=== PATIENT | female | born 1955 | race African-American/Black ===

== ENCOUNTER 2016-07-07 10:08 | Emergency (ER) | payer OTHER ==
[2016-07-07] MEDS ORDERED: Oxymetazoline HCl 0.05% ( 15 ML ) ONE (12:42)
[2016-07-07] MEDS ORDERED: Clindamycin 150 MG CAP ONE (13:35)
[2016-07-07 14:05] LABS: #Basophils 0.1 thou/uL (0.0-0.2); #Eosinphils 0.2 thou/uL (0.0-0.7); #Monocytes 0.7 thou/uL (0.11-0.59); #Neutrophils 5.5 thou/uL (1.40-6.50); %Basophils 0.6 % (0.0-1.0); %Eosinophils 2.8 % (0.0-10.0); %Lymphocytes 25.4 % (21.0-51.0); %Neutrophils 63.2 % (42.0-75.0); Hemoglobin 10.5 g/dL (12.0-16.0); Mean Corpuscular HGB CONC 29.8 g/dL (32.0-36.0); Mean Corpuscular Hemoglobin 25.4 pg (27.0-31.0); Mean Corpuscular Volume 85.3 fl (81.0-99.0); Mean Platelet Volume 7.6 fL (7.4-10.4); Platelet Count 277 thou/uL (130-400); RBC Distribution Width 15.5 % (11.5-14.5); Red Blood Cell (RBC) Count 4.13 mill/uL (4.20-5.40); White Blood Cell (WBC) Count 8.6 thou/uL (4.8-10.8)
[2016-07-07 14:06] LABS: MDiff Complete? YES; Manual Diff?? NO
== END 2016-07-07 14:30 | disposition home or self-care (01) ==
LOC: MADERS 10:08
DX: R04.0 Epistaxis (principal); E10.9 Type 1 diabetes mellitus without complications; I10 Essential (primary) hypertension; J45.909 Unspecified asthma, uncomplicated; E03.9 Hypothyroidism, unspecified; Z79.4 Long term (current) use of insulin; Z79.84 Long term (current) use of oral hypoglycemic drugs
CPT/HCPCS: 30903; 36415; 85025

== ENCOUNTER 2017-03-12 12:33 | Emergency (ER) | payer OTHER ==
[2017-03-12 13:44] LABS: #Eosinphils 0.1 thou/uL (0.0-0.7); #Lymphocytes 1.6 thou/uL (1.20-3.40); #Monocytes 0.6 thou/uL (0.11-0.59); %Basophils 0.7 % (0.0-1.0); %Eosinophils 1.8 % (0.0-10.0); %Lymphocytes 24.9 % (21.0-51.0); %Monocytes 8.8 % (0.0-10.0); %Neutrophils 63.7 % (42.0-75.0); Hemoglobin 11.6 g/dL (12.0-16.0); Mean Corpuscular HGB CONC 30.5 g/dL (32.0-36.0); Mean Corpuscular Hemoglobin 25.6 pg (27.0-31.0); Mean Corpuscular Volume 83.9 fl (81.0-99.0); Mean Platelet Volume 7.5 fL (7.4-10.4); Platelet Count 285 thou/uL (130-400); RBC Distribution Width 15.8 % (11.5-14.5); Red Blood Cell (RBC) Count 4.54 mill/uL (4.20-5.40); White Blood Cell (WBC) Count 6.3 thou/uL (4.8-10.8)
[2017-03-12 13:49] LABS: Bilirubin Negative (Negative); Blood, Urine Large (Negative); Clarity Cloudy (Clear); Glucose, Urine (Dipstick) Negative (Negative); Leukocyte Moderate (Negative); Nitrite Positive (Negative); Protein, Urine (Dipstick) 100 mg/dL (Neg-Trace)
[2017-03-12 13:56] LABS: RBC/HPF GREATER THAN 50-TNTC HPF (0-3); WBC/HPF 21-50 HPF (0-3)
[2017-03-12 13:57] LABS: Bacteria/HPF 4+ HPF (None Seen)
[2017-03-12 14:00] LABS: ALT (SGPT) 23 U/L (8-55); AST (SGOT) 29 U/L (5-34); Albumin 3.9 g/dL (3.4-4.8); Alkaline Phosphatase 102 U/L (40-150); Anion Gap 22 mmol/L (10-20); BUN (Urea Nitrogen) 21 mg/dL (9.8-20.1); Bilirubin, Total 0.4 mg/dL (0.2-1.2); Calc. Creatinine Clearance 0 mL/min (70-130); Calcium 9.7 mg/dL (7.8-10.44); Carbon Dioxide 24 mmol/L (23-31); Chloride 102 mmol/L (98-107); Estimated GFR-MDRD 63; Globulin 4.8 g/dL (2.4-3.5); Glucose 127 mg/dL (80-115); Potassium 3.6 mmol/L (3.5-5.1); Protein, Total 8.7 g/dL (6.0-8.3); Sodium 144 mmol/L (136-145)
[2017-03-12] MEDS ORDERED: Ciprofloxacin 500 MG TAB ONE (14:14)
== END 2017-03-12 14:10 | disposition home or self-care (01) ==
LOC: MADERS 12:33
DX: N30.01 Acute cystitis with hematuria (principal); D50.9 Iron deficiency anemia, unspecified; E03.9 Hypothyroidism, unspecified; E10.9 Type 1 diabetes mellitus without complications; E66.9 Obesity, unspecified; G47.30 Sleep apnea, unspecified; J45.909 Unspecified asthma, uncomplicated; I10 Essential (primary) hypertension; M10.9 Gout, unspecified; M19.90 Unspecified osteoarthritis, unspecified site; Z87.891 Personal history of nicotine dependence; Z79.84 Long term (current) use of oral hypoglycemic drugs; Z79.899 Other long term (current) drug therapy
CPT/HCPCS: 36415; 80053; 81003; 81015; 85025; 99283

== ENCOUNTER 2017-04-02 12:20 | Emergency (ER) | payer OTHER ==
[2017-04-02] MEDS ORDERED: Gabapentin 100 MG CAP ONE (12:34)
[2017-04-02] MEDS ORDERED: Dexamethasone 4 MG TAB ONE (12:34)
[2017-04-02] MEDS ORDERED: Acetaminophen 325 MG TAB ONE (12:34)
[2017-04-02] MEDS ORDERED: HYDROcodone/Acetaminophen 10/325 mg Tablet ONE (12:34)
== END 2017-04-02 14:30 | disposition home or self-care (01) ==
LOC: MADERS 12:20
DX: M54.5 Low back pain (principal); E10.9 Type 1 diabetes mellitus without complications; I10 Essential (primary) hypertension; J45.909 Unspecified asthma, uncomplicated; Z87.891 Personal history of nicotine dependence; Z79.02 Long term (current) use of antithrombotics/antiplatelets; Z79.899 Other long term (current) drug therapy; Z79.2 Long term (current) use of antibiotics
CPT/HCPCS: 99283; J8540

== ENCOUNTER 2017-05-05 15:11 | Emergency (ER) | payer OTHER ==
[2017-05-05 15:54] LABS: #Basophils 0.1 thou/uL (0.0-0.2); #Eosinphils 0.2 thou/uL (0.0-0.7); #Lymphocytes 1.6 thou/uL (1.20-3.40); #Monocytes 0.7 thou/uL (0.11-0.59); %Basophils 1.1 % (0.0-1.0); %Eosinophils 2.1 % (0.0-10.0); %Lymphocytes 20.9 % (21.0-51.0); Hemoglobin 11.8 g/dL (12.0-16.0); Mean Corpuscular HGB CONC 30.6 g/dL (32.0-36.0); Mean Corpuscular Hemoglobin 25.6 pg (27.0-31.0); Mean Corpuscular Volume 83.8 fl (81.0-99.0); Mean Platelet Volume 7.9 fL (7.4-10.4); Platelet Count 303 thou/uL (130-400); Red Blood Cell (RBC) Count 4.59 mill/uL (4.20-5.40); White Blood Cell (WBC) Count 7.5 thou/uL (4.8-10.8)
[2017-05-05] MEDS ORDERED: Diazepam 5 MG TAB ONE (16:03)
[2017-05-05] MEDS ORDERED: MORPHINE 10 MG/ML SYRINGE ONE (16:03)
[2017-05-05] MEDS ORDERED: Ondansetron HCl/PF 4 MG/2 ML Vial ONE (16:04)
[2017-05-05 16:09] LABS: ALT (SGPT) 20 U/L (8-55); AST (SGOT) 19 U/L (5-34); Albumin 3.5 g/dL (3.4-4.8); Alkaline Phosphatase 106 U/L (40-150); Anion Gap 17 mmol/L (10-20); BUN (Urea Nitrogen) 14 mg/dL (9.8-20.1); Bilirubin, Total 0.5 mg/dL (0.2-1.2); Calc. Creatinine Clearance 0 mL/min (70-130); Carbon Dioxide 29 mmol/L (23-31); Chloride 100 mmol/L (98-107); Estimated GFR-MDRD 78; Globulin 4.9 g/dL (2.4-3.5); Glucose 117 mg/dL (80-115); Potassium 3.8 mmol/L (3.5-5.1); Protein, Total 8.4 g/dL (6.0-8.3); Sodium 142 mmol/L (136-145)
[2017-05-05 16:40] LABS: Lipase Less than 4 U/L (8-78)
[2017-05-05 17:17] LABS: Bilirubin Negative (Negative); Blood, Urine Trace (Negative); Clarity Slightly Cloudy (Clear); Glucose, Urine (Dipstick) Negative (Negative); Leukocyte Small (Negative); Nitrite Positive (Negative); Protein, Urine (Dipstick) Negative (Neg-Trace); Specific Gravity, Urine 1.015 (1.005-1.030); Urobilinogen 0.2 mg/dL (0.2-1.0); pH, Urine 7.5 (5.0-9.0)
[2017-05-05 17:18] LABS: Bacteria/HPF 4+ HPF (None Seen); RBC/HPF 0-3 HPF (0-3); WBC/HPF 21-50 HPF (0-3)
[2017-05-05] MEDS ORDERED: Morphine 4 MG/ML VIAL ONE (17:35)
[2017-05-05] MEDS ORDERED: Promethazine HCl 25 MG/ML VIAL ONE (17:35)
[2017-05-05] MEDS ORDERED: Sulfameth/Trimethoprim DS 800-160mg TAB ONE (17:35)
== END 2017-05-05 18:40 | disposition home or self-care (01) ==
LOC: MADERS 15:11
DX: M54.5 Low back pain (principal); N39.0 Urinary tract infection, site not specified; E10.9 Type 1 diabetes mellitus without complications; I10 Essential (primary) hypertension; E66.9 Obesity, unspecified; J45.909 Unspecified asthma, uncomplicated; D50.9 Iron deficiency anemia, unspecified; Z87.891 Personal history of nicotine dependence
CPT/HCPCS: 36415; 51702; 80053; 81001; 82150; 83690; 85025; 87077; 87086; 87186; 96374; 96375; 96376; J2270; J2405; J2550

== ENCOUNTER 2017-05-09 12:36 | Emergency (ER) | payer OTHER ==
[2017-05-09] MEDS ORDERED: Sodium Chloride For Inhalation 0.9% 3 ML NEB ONE (13:45)
--- NOTE | 2017-05-09 13:52 | RAD ---
PORTABLE CHEST: Date: 05-09-17 Provided Clinical History: Shortness of breath. Comparison: 04-07-16 FINDINGS: Evaluation is markedly limited due to patient body habitus and patient motion. The cardiac silhouette appears enlarged. No evidence for lobar consolidation or large effusion. Evaluation for pneumothorax is limited. IMPRESSION: Limited study. POS: [facility]
[2017-05-09] MEDS ORDERED: Acetaminophen 500 MG TAB ONE (14:06)
[2017-05-09] MEDS ORDERED: Nitrofurantoin Monohyd/M-Cryst 100 MG CAP ONE (14:17)
== END 2017-05-09 16:27 | disposition home or self-care (01) ==
LOC: MADERS 12:36
DX: J95.03 Malfunction of tracheostomy stoma (principal); Z76.0 Encounter for issue of repeat prescription; J45.909 Unspecified asthma, uncomplicated; E10.9 Type 1 diabetes mellitus without complications; E03.9 Hypothyroidism, unspecified; D64.9 Anemia, unspecified; I10 Essential (primary) hypertension; M10.9 Gout, unspecified; Z87.891 Personal history of nicotine dependence; Z79.899 Other long term (current) drug therapy; Z79.891 Long term (current) use of opiate analgesic
CPT/HCPCS: 71045; J7620

== ENCOUNTER 2017-07-23 16:48 | Emergency (ER) | payer OTHER ==
[~2017-07-23 16:48] MED LIST: Sodium Chloride 0.9% 1,000 ML BAG ONE
[2017-07-23] MEDS ORDERED: Fentanyl 100 MCG/2 ML VIAL ONE (17:06)
[2017-07-23] MEDS ORDERED: Ondansetron HCl/PF 4 MG/2 ML Vial ONE (17:07)
[2017-07-23] MEDS ORDERED: methylPREDNISolone Sod Succ/PF 125 MG/2 ML VIAL ONE (18:35)
--- NOTE | 2017-07-23 18:45 | CT ---
CT LUMBAR SPINE WITHOUT IV CONTRAST: Indication: History of back pain. Comparison: Lumbar spinal radiographs, 06-21-16 FINDINGS: Grade I anterolisthesis of L4 on L5 stable. The advanced endplate Modic change at L4-5 is stable. No acute fracture or subluxation is evident. There is moderate to severe multi-level disc degenerative change and facet osteoarthritic change. There is a broad based disc osteophyte complex with loss of disc space height at L5-S1 likely inducin g at least moderate bilateral osseous neural foraminal narrowing. At the L4-5 level, there is at least moderate to severe central canal narrowing due to anterolisthesi s, broad based disc osteophyte complex, and facet and degenerative change. There is at least moderate bilateral neural foraminal narrowing. At the L3-4 level, there is an asymmetry to the right disc osteophyte complex with facet joint degene rative change likely inducing at least moderate to severe right and moderate left neural foraminal na rrowing with at least mild central canal narrowing. At the L2-3 level, there is a broad based disc osteophyte complex without appreciable osseous central canal or neural foraminal narrowing. At the L1-3 level, there is a broad based bulge suspected without appreciable osseous central canal o r neural foraminal narrowing. Visualized retroperitoneum demonstrates a small hiatal hernia with scattered vascular calcification a nd numerous phleboliths within the gonadal vein. IMPRESSION: 1. Moderate to severe multilevel spondylosis most pronounced at L4-5 where there is at least moderate to severe central canal narrowing with moderate bilateral osseous neural foraminal narrowing. 2. No acute fracture or subluxation is demonstrated. 3. Small hiatal hernia. POS: [facility]
== END 2017-07-23 21:01 | disposition home or self-care (01) ==
LOC: MADERS 16:48
DX: M54.5 Low back pain (principal); I10 Essential (primary) hypertension; E66.9 Obesity, unspecified; E03.9 Hypothyroidism, unspecified; M10.9 Gout, unspecified; D64.9 Anemia, unspecified; E10.9 Type 1 diabetes mellitus without complications; Z87.891 Personal history of nicotine dependence; Z79.899 Other long term (current) drug therapy; Z79.84 Long term (current) use of oral hypoglycemic drugs
CPT/HCPCS: 72131; 94760; 96361; 96374; 96375; J2405; J2930; J3010; J7050; J7620

== ENCOUNTER 2017-07-26 01:55 | Emergency (ER) | payer OTHER ==
[2017-07-26] MEDS ORDERED: Ondansetron ODT 4 MG TAB ONE (02:18)
[2017-07-26] MEDS ORDERED: Fentanyl 100 MCG/2 ML VIAL ONE (02:18)
== END 2017-07-26 03:20 | disposition home or self-care (01) ==
LOC: MADERS 01:55
DX: G89.29 Other chronic pain (principal); M54.9 Dorsalgia, unspecified; I10 Essential (primary) hypertension; E03.9 Hypothyroidism, unspecified; M10.9 Gout, unspecified; E11.9 Type 2 diabetes mellitus without complications; Z87.891 Personal history of nicotine dependence; Z79.899 Other long term (current) drug therapy
CPT/HCPCS: 96372; J3010; J7620; Q0162

== ENCOUNTER 2017-08-30 11:57 | Emergency (ER) | payer OTHER ==
[2017-08-30] MEDS ORDERED: Morphine 10 MG/ML VIAL ONE (12:07)
[2017-08-30 12:56] LABS: Hemoglobin 9.8 g/dL (12.0-16.0); Mean Corpuscular HGB CONC 30.4 g/dL (32.0-36.0); Mean Corpuscular Hemoglobin 24.2 pg (27.0-31.0); Mean Corpuscular Volume 79.7 fL (81.0-99.0); Platelet Count 273 thou/uL (130-400); RBC Distribution Width 16.6 % (11.5-14.5); Red Blood Cell (RBC) Count 4.05 mill/uL (4.20-5.40); White Blood Cell (WBC) Count 9.2 thou/uL (4.8-10.8)
[2017-08-30 12:57] LABS: #Basophils 0.5 thou/uL (0.0-0.2); #Eosinphils 0.1 thou/uL (0.0-0.7); #Lymphocytes 1.9 thou/uL (1.20-3.40); #Neutrophils 6.2 thou/uL (1.40-6.50); %Basophils 0.6 % (0.0-1.0); %Lymphocytes 20.3 % (21.0-51.0); %Monocytes 10.5 % (0.0-10.0); %Neutrophils 67.6 % (42.0-75.0); Mean Platelet Volume 6.3 fL (7.4-10.4)
[2017-08-30 12:59] LABS: Anion Gap 18 mmol/L (10-20); BUN (Urea Nitrogen) 13 mg/dL (9.8-20.1); Calc. Creatinine Clearance 0 mL/min (70-130); Carbon Dioxide 23 mmol/L (23-31); Chloride 106 mmol/L (98-107); Estimated GFR-MDRD 58; Glucose 106 mg/dL (80-115); Potassium 3.7 mmol/L (3.5-5.1); Sodium 143 mmol/L (136-145)
[2017-08-30] MEDS ORDERED: HYDROcodone/Acetaminophen 5/325 mg Tablet ONE (14:29)
== END 2017-08-30 18:07 | disposition home or self-care (01) ==
LOC: MADERS 11:57
DX: M25.552 Pain in left hip (principal); M25.551 Pain in right hip; M25.562 Pain in left knee; M25.561 Pain in right knee; M25.572 Pain in left ankle and joints of left foot; M25.571 Pain in right ankle and joints of right foot; M79.602 Pain in left arm; M79.601 Pain in right arm; E66.01 Morbid (severe) obesity due to excess calories; I10 Essential (primary) hypertension; J45.909 Unspecified asthma, uncomplicated; E03.9 Hypothyroidism, unspecified; M10.9 Gout, unspecified; E10.9 Type 1 diabetes mellitus without complications; Z87.891 Personal history of nicotine dependence; Z79.84 Long term (current) use of oral hypoglycemic drugs; Z79.02 Long term (current) use of antithrombotics/antiplatelets; Z79.899 Other long term (current) drug therapy
CPT/HCPCS: 36415; 36416; 80048; 85025; 85652; 96374; J2270

== ENCOUNTER 2017-09-01 16:25 | Emergency (ER) | payer OTHER ==
[2017-09-01] MEDS ORDERED: HYDROcodone/Acetaminophen 10/325 mg Tablet ONE (17:00)
[2017-09-01] MEDS ORDERED: predniSONE 20 MG TAB ONE (17:01)
[2017-09-01] MEDS ORDERED: Morphine 10 MG/ML VIAL ONE ×2 (20:09→22:14)
[2017-09-01] MEDS ORDERED: diphenhydrAMINE 25 MG CAP ONE (22:14)
== END 2017-09-01 22:50 | disposition home or self-care (01) ==
LOC: MADERS 16:25
DX: M10.9 Gout, unspecified (principal); I10 Essential (primary) hypertension; E66.01 Morbid (severe) obesity due to excess calories; J45.909 Unspecified asthma, uncomplicated; E03.9 Hypothyroidism, unspecified; E10.9 Type 1 diabetes mellitus without complications; D64.9 Anemia, unspecified; Z87.891 Personal history of nicotine dependence; Z79.84 Long term (current) use of oral hypoglycemic drugs; Z79.899 Other long term (current) drug therapy; Z79.02 Long term (current) use of antithrombotics/antiplatelets; Z93.0 Tracheostomy status
CPT/HCPCS: 96374; 96376; J2270; J7506

== ENCOUNTER 2017-10-11 20:51 | Emergency (ER) | payer OTHER ==
[2017-10-11] MEDS ORDERED: cloNIDine 0.1 MG TAB ONE (21:31)
[2017-10-11] MEDS ORDERED: Amlodipine 5 MG TAB ONE (21:31)
== END 2017-10-11 22:00 | disposition home or self-care (01) ==
LOC: MADERS 20:51
DX: R04.0 Epistaxis (principal); I10 Essential (primary) hypertension; M10.9 Gout, unspecified; D64.9 Anemia, unspecified; E10.9 Type 1 diabetes mellitus without complications; J45.909 Unspecified asthma, uncomplicated; E03.9 Hypothyroidism, unspecified; Z87.891 Personal history of nicotine dependence; Z79.899 Other long term (current) drug therapy; Z79.84 Long term (current) use of oral hypoglycemic drugs
CPT/HCPCS: 99283

== ENCOUNTER 2018-01-09 14:41 | Emergency (ER) | payer OTHER ==
[2018-01-09 15:24] LABS: Prothrombin Time 12.9 SEC (12.0-14.7)
[2018-01-09 15:39] LABS: ALT (SGPT) 16 U/L (8-55); AST (SGOT) 20 U/L (5-34); Albumin 3.9 g/dL (3.4-4.8); Alkaline Phosphatase 124 U/L (40-150); Anion Gap 16 mmol/L (10-20); BUN (Urea Nitrogen) 18 mg/dL (9.8-20.1); Bilirubin, Total 0.4 mg/dL (0.2-1.2); Calc. Creatinine Clearance 0 mL/min (70-130); Calcium 10.1 mg/dL (7.8-10.44); Carbon Dioxide 24 mmol/L (23-31); Chloride 105 mmol/L (98-107); Estimated GFR-MDRD 45; Globulin 4.9 g/dL (2.4-3.5); Glucose 175 mg/dL (80-115); Potassium 4.1 mmol/L (3.5-5.1); Protein, Total 8.8 g/dL (6.0-8.3); Sodium 141 mmol/L (136-145)
[2018-01-09 15:47] LABS: #Basophils 0.1 thou/uL (0.0-0.2); #Eosinphils 0.1 thou/uL (0.0-0.7); #Lymphocytes 1.7 thou/uL (1.20-3.40); #Monocytes 0.5 thou/uL (0.11-0.59); #Neutrophils 4.5 thou/uL (1.40-6.50); %Lymphocytes 24.2 % (21.0-51.0); %Monocytes 6.9 % (0.0-10.0); %Neutrophils 65.9 % (42.0-75.0); Hemoglobin 9.8 g/dL (12.0-16.0); Hypochromia SLIGHT = 6-15 cells (100X) (0-5/hpf); MDiff Complete? YES; Mean Corpuscular HGB CONC 29.5 g/dL (32.0-36.0); Mean Corpuscular Hemoglobin 25.4 pg (27.0-31.0); Mean Corpuscular Volume 86.2 fL (78.0-98.0); Mean Platelet Volume 7.5 fL (7.4-10.4); Platelet Count 354 thou/uL (130-400); Polychromasia SLIGHT = 2-3 cells (100X) (0-2/hpf); RBC Distribution Width 21.9 % (11.5-14.5); Red Blood Cell (RBC) Count 3.86 mill/uL (4.20-5.40); White Blood Cell (WBC) Count 6.9 thou/uL (4.8-10.8)
--- NOTE | 2018-01-09 16:01 | RAD ---
CHEST 1 VIEW: Date: 01/09/18 COMPARISON: 05/20/17. HISTORY: Dyspnea. FINDINGS: Patient is slightly rotated to the right. Tracheostomy is noted. Heart is enlarged. Pulmonary vessels are prominent. Reticulonodular opacities, without consolidation or mass. No pleural effusion. No pne umothorax. IMPRESSION: Limited evaluation due to portable technique. There does appear to be congestive heart failure. Bella r interrogation with a 2 view chest radiograph is recommended. POS: [facility]
[2018-01-09 17:00] LABS: Bicarbonate (HCO3v) 26.3 mmol/L (1.0-85.0); CO2 Tension (PvCO2) 50.3 mmHg (41.0-51.0); O2 Tension (PvO2) 185.9 mmHg (35.0-45.0); pH (Venous) 7.326 (7.35-7.45)
[2018-01-09 17:01] LABS: Base Excess-Venous -0.4 mmol/L (0 (+/- 2.5))
[2018-01-09 17:02] LABS: Hemoglobin - Calc 12.9 g/dL (12.0-18.0); vO2 Saturation-calc 99.5 % (94-98)
[2018-01-09 17:03] LABS: Calcium, Ionized 1.23 mmol/L (1.12-1.32); T. Carbon Dioxide 27.8 mmol/L (1.0-85.0)
[2018-01-09 18:01] LABS: Bilirubin Moderate (Negative); Blood, Urine Negative (Negative); Clarity Cloudy (Clear); Glucose, Urine (Dipstick) Negative (Negative); Leukocyte Small (Negative); Nitrite Negative (Negative); Protein, Urine (Dipstick) 100 mg/dL (Neg-Trace)
[2018-01-09 18:10] LABS: Bacteria/HPF 1+ HPF (None Seen); RBC/HPF None Seen HPF (0-3); Squamous Epithelial 0-3 HPF (0-3)
[2018-01-09 18:11] LABS: Crystals/HPF 2+ AMORPH URATES HPF (Negative)
[2018-01-09] MEDS ORDERED: Ciprofloxacin Lactate/D5W 400 mg/200 ml Premix ONE (18:35)
== END 2018-01-09 19:41 | disposition short-term general hospital (02) ==
LOC: MADERS 14:41
DX: N39.0 Urinary tract infection, site not specified (principal); R79.89 Other specified abnormal findings of blood chemistry; D64.9 Anemia, unspecified; E10.9 Type 1 diabetes mellitus without complications; E03.9 Hypothyroidism, unspecified; I10 Essential (primary) hypertension; E66.9 Obesity, unspecified; J45.909 Unspecified asthma, uncomplicated; G47.30 Sleep apnea, unspecified; M10.9 Gout, unspecified; Z87.891 Personal history of nicotine dependence; Z79.84 Long term (current) use of oral hypoglycemic drugs; Z79.899 Other long term (current) drug therapy
CPT/HCPCS: 36415; 71045; 80053; 81003; 81015; 82330; 82803; 83605; 83880; 84484; 85025; 85610; 87040; 87086; 93005; 96361; 96365; A4353; J0744; J7050

== ENCOUNTER 2018-02-18 15:40 | Emergency (ER) | payer OTHER ==
--- NOTE | 2018-02-18 16:58 | RAD ---
CHEST ONE VIEW: History: Dyspnea. Comparison: 01-09-18 FINDINGS: Cardiac silhouette is magnified by projection. Pulmonary vasculature is slightly more engorged than o n a prior study. Mediastinum is midline with tracheal thinning appliance. No lobar consolidation or e vidence of pneumothorax. IMPRESSION: Mild pulmonary vascular congestion. POS: [facility]
[2018-02-18 17:03] LABS: ALT (SGPT) 18 U/L (8-55); AST (SGOT) 19 U/L (5-34); Albumin 3.9 g/dL (3.4-4.8); Alkaline Phosphatase 117 U/L (40-150); Anion Gap 15 mmol/L (10-20); BUN (Urea Nitrogen) 19 mg/dL (9.8-20.1); Bilirubin, Total 0.3 mg/dL (0.2-1.2); Calc. Creatinine Clearance 0 mL/min (70-130); Calcium 10.3 mg/dL (7.8-10.44); Carbon Dioxide 26 mmol/L (23-31); Chloride 105 mmol/L (98-107); Estimated GFR-MDRD 47; Glucose 118 mg/dL (80-115); Potassium 4.2 mmol/L (3.5-5.1); Protein, Total 8.9 g/dL (6.0-8.3); Sodium 142 mmol/L (136-145)
[2018-02-18 17:15] LABS: #Eosinphils 0.1 thou/uL (0.0-0.7); #Lymphocytes 1.5 thou/uL (1.20-3.40); #Monocytes 0.8 thou/uL (0.11-0.59); #Neutrophils 5.2 thou/uL (1.40-6.50); %Basophils 0.6 % (0.0-1.0); %Eosinophils 1.7 % (0.0-10.0); %Lymphocytes 19.9 % (21.0-51.0); %Neutrophils 67.9 % (42.0-75.0); Anisocytosis MODERATE=16-30 cells (100X) (0-5/hpf); Hemoglobin 9.9 g/dL (12.0-16.0); MDiff Complete? YES; Mean Corpuscular HGB CONC 28.9 g/dL (32.0-36.0); Mean Corpuscular Hemoglobin 25.3 pg (27.0-31.0); Mean Corpuscular Volume 87.5 fL (78.0-98.0); Mean Platelet Volume 6.8 fL (7.4-10.4); Platelet Count 332 thou/uL (130-400); Polychromasia SLIGHT = 2-3 cells (100X) (0-2/hpf); RBC Distribution Width 20.7 % (11.5-14.5); Red Blood Cell (RBC) Count 3.92 mill/uL (4.20-5.40); White Blood Cell (WBC) Count 7.7 thou/uL (4.8-10.8)
== END 2018-02-18 19:40 | disposition home or self-care (01) ==
LOC: MADERS 15:40
DX: Z00.00 Encounter for general adult medical examination without abnormal findings (principal); I10 Essential (primary) hypertension; E66.9 Obesity, unspecified; E03.9 Hypothyroidism, unspecified; M10.9 Gout, unspecified; D64.9 Anemia, unspecified; E10.9 Type 1 diabetes mellitus without complications; J45.909 Unspecified asthma, uncomplicated; G47.30 Sleep apnea, unspecified; Z87.891 Personal history of nicotine dependence; Z79.84 Long term (current) use of oral hypoglycemic drugs; Z79.899 Other long term (current) drug therapy
CPT/HCPCS: 36415; 71045; 80053; 83880; 84484; 85025; 93005; J7620

== ENCOUNTER 2018-07-15 22:15 | Emergency (ER) | payer OTHER ==
[2018-07-15] MEDS ORDERED: Acetaminophen 500 MG TAB ONE (22:52)
[2018-07-15] MEDS ORDERED: Sodium Chloride 0.9% 1,000 ML ONE (22:52)
[2018-07-15] MEDS ORDERED: Nitroglycerin 2% Ointment 1 INCH/1 GM Packet ONE (22:52)
[2018-07-15] MEDS ORDERED: Clindamycin/D5W 600 mg/50 ml Premix Bag ONE (22:52)
[2018-07-15 23:30] LABS: ALT (SGPT) 21 U/L (8-55); AST (SGOT) 22 U/L (5-34); Albumin 3.9 g/dL (3.4-4.8); Alkaline Phosphatase 140 U/L (40-150); Anion Gap 15 mmol/L (10-20); BUN (Urea Nitrogen) 14 mg/dL (9.8-20.1); Bilirubin, Total 0.6 mg/dL (0.2-1.2); Calc. Creatinine Clearance 0 mL/min (70-130); Calcium 10.2 mg/dL (7.8-10.44); Carbon Dioxide 29 mmol/L (23-31); Chloride 102 mmol/L (98-107); Estimated GFR-MDRD 66; Globulin 4.9 g/dL (2.4-3.5); Glucose 132 mg/dL (80-115); Protein, Total 8.8 g/dL (6.0-8.3); Sodium 142 mmol/L (136-145)
[2018-07-15 23:37] LABS: Band 2 % (5-11); Eosinophils 1 % (0-10); Hemoglobin 10.7 g/dL (12.0-16.0); Hypochromia SLIGHT = 6-15 cells (100X) (0-5/hpf); Lymphocytes 3 % (21-51); MDiff Complete? YES; Mean Corpuscular HGB CONC 28.7 g/dL (32.0-36.0); Mean Corpuscular Hemoglobin 24.8 pg (27.0-31.0); Mean Corpuscular Volume 86.5 fL (78.0-98.0); Monocytes 5 % (0-10); Neutrophil 84 % (42-75); Platelet Count 310 thou/uL (130-400); Platelet Morphology Comment Appears Adequate; Polychromasia SLIGHT = 2-3 cells (100X) (0-2/hpf); RBC Distribution Width 18.2 % (11.5-14.5); Reactive Lymphocytes 5 % (0-10); Red Blood Cell (RBC) Count 4.29 mill/uL (4.20-5.40); White Blood Cell (WBC) Count 16.4 thou/uL (4.8-10.8)
[2018-07-15] MEDS ORDERED: Levofloxacin 500 mg/D5W 100 ml Premix Bag ONE (23:38)
--- NOTE | 2018-07-15 23:43 | CT ---
CT CHEST WITHOUT CONTRAST: 07/15/2018 HISTORY: Cough. Fever. Hypoxia. COMPARISON: CT angiogram chest from 06/21/2014. TECHNIQUE: Axial CT imaging without contrast, through chest, with coronal and sagittal reformatted imaging. FINDINGS: Tracheostomy tube in place. Evaluation of the vascular structures, imaged viscera, and for lymphaden opathy is limited without contrast media. The visualized upper abdomen appears grossly unremarkable, aside from a stable, moderate sized, slidi ng hiatal hernia. No pleural, pericardial, or mediastinal fluid. No pneumothorax on either side. T here is a pulmonary nodule in the right upper lobe, measuring 1.2 cm, unchanged when compared to the 06/21/2014 examination. The lung parenchyma appears grossly unremarkable otherwise. Scattered ather osclerotic calcification of the aortic arch again noted. Review of the osseous structures demonstrates no acute finding. IMPRESSION: 1. Stable CT examination of the chest, as detailed above. 2. No acute findings are noted. POS: [facility]
== END 2018-07-16 00:30 | disposition short-term general hospital (02) ==
LOC: MADERS 22:15
DX: A41.9 Sepsis, unspecified organism (principal); R06.03 Acute respiratory distress; I10 Essential (primary) hypertension; R11.2 Nausea with vomiting, unspecified; R09.02 Hypoxemia; E03.9 Hypothyroidism, unspecified; E66.9 Obesity, unspecified; J02.0 Streptococcal pharyngitis; M10.9 Gout, unspecified; D64.9 Anemia, unspecified; G47.30 Sleep apnea, unspecified; Z87.891 Personal history of nicotine dependence; Z79.899 Other long term (current) drug therapy; Z79.891 Long term (current) use of opiate analgesic; Z79.84 Long term (current) use of oral hypoglycemic drugs
CPT/HCPCS: 71250; 80053; 83605; 83880; 85025; 87040; 87430; 87804; 94760; 96365; 96368; J1956; J3490; J7050

== ENCOUNTER 2021-03-30 05:08 | Emergency (ER) | payer MEDICARE, MEDICAID ==
[2021-03-30 07:04] LABS: #Eosinphils 0.1 thou/uL (0.0-0.7); #Lymphocytes 0.8 thou/uL (1.20-3.40); #Monocytes 0.3 thou/uL (0.11-0.59); #Neutrophils 5.1 thou/uL (1.40-6.50); %Basophils 0.6 % (0.0-1.0); %Lymphocytes 12.1 % (21.0-51.0); %Monocytes 4.5 % (0.0-10.0); %Neutrophils 80.9 % (42.0-75.0); Hemoglobin 10.1 g/dL (12.0-16.0); Mean Corpuscular HGB CONC 27.5 g/dL (32.0-36.0); Mean Corpuscular Hemoglobin 26.5 pg (27.0-31.0); Mean Corpuscular Volume 96.1 fL (78.0-98.0); Mean Platelet Volume 7.2 fL (7.4-10.4); Platelet Count 203 thou/uL (130-400); RBC Distribution Width 18.7 % (11.5-14.5); White Blood Cell (WBC) Count 6.4 thou/uL (4.8-10.8)
[2021-03-30 07:14] LABS: ALT (SGPT) 23 U/L (8-55); AST (SGOT) 31 U/L (5-34); Albumin 3.8 g/dL (3.4-4.8); Alkaline Phosphatase 133 U/L (40-110); Anion Gap 13 mmol/L (10-20); BUN (Urea Nitrogen) 16 mg/dL (9.8-20.1); Bilirubin, Total 0.4 mg/dL (0.2-1.2); CK (CPK) 632 U/L (29-168); CRP (Inflammatory) 3.46 mg/dL (= or < 0.5); Calc. Creatinine Clearance 0 mL/min (70-130); Calcium 9.8 mg/dL (7.8-10.44); Carbon Dioxide 32 mmol/L (23-31); Chloride 104 mmol/L (98-107); Glucose 79 mg/dL (80-115); Potassium 4.1 mmol/L (3.5-5.1); Protein, Total 8.8 g/dL (5.8-8.1); Sodium 145 mmol/L (136-145)
[2021-03-30 07:33] LABS: Anisocytosis SLIGHT = 6-15 cells (100X) (0-5/hpf); Platelet Morphology Comment Appears Adequate
[2021-03-30] MEDS ORDERED: Sodium Chloride 0.9% 1,000 ML ONE (07:38)
== END 2021-03-30 08:56 | disposition home or self-care (01) ==
LOC: MADERS 05:08
DX: E86.0 Dehydration (principal); R06.02 Shortness of breath; E66.01 Morbid (severe) obesity due to excess calories; E03.9 Hypothyroidism, unspecified; G47.30 Sleep apnea, unspecified; Z87.891 Personal history of nicotine dependence; Z79.899 Other long term (current) drug therapy; Z79.84 Long term (current) use of oral hypoglycemic drugs
CPT/HCPCS: 71045; 80053; 82550; 83880; 84484; 85025; 86140; 93005; 94760; J7050